=== PATIENT | female | born 1955 | race Caucasian/White ===

== ENCOUNTER 2018-07-14 21:04 | Emergency (ER) | payer SELFPAY ==
[2018-07-14] MEDS: BENOXINATE/FLUORESCEIN DROPS BOTH EYES (21:26)
[2018-07-14] MEDS: DIPHTH/TET/ACEL PERTUSS (ADULT) 0.5 ML VIAL IM* (22:52)
[2018-07-15] MEDS: SODIUM CHLORIDE 0.9% 1L IRRIG IRR ×2 (00:08→00:09)
== END 2018-07-15 00:15 | disposition home or self-care (01) ==
LOC: FTE 07-15 00:15
DX: S05.91XA Unspecified injury of right eye and orbit, initial encounter (principal); H11.31 Conjunctival hemorrhage, right eye; X58.XXXA Exposure to other specified factors, initial encounter; Y92.89 Other specified places as the place of occurrence of the external cause; Z23 Encounter for immunization
CPT/HCPCS: 70480; 90471; 90715; 99284-25